=== PATIENT | male | born 1950 | race Caucasian/White ===

== ENCOUNTER → 2024-02-10 11:08 | Outpatient (REF) | payer OTHER, SELFPAY | LOC: RAD 11:08 | PROVIDERS: ATTENDING PHYSICIAN Nurse Practitioner; FAMILY PHYSICIAN Family Medicine | DX: J06.9 Acute upper respiratory infection, unspecified (principal) | CPT/HCPCS: 71046 ==

== ENCOUNTER → 2024-03-08 11:14 | Outpatient (REF) | payer OTHER, SELFPAY | LOC: RAD 11:14 | PROVIDERS: ATTENDING PHYSICIAN Student in an Organized Health Care Education/Training Program; OTHER PHYSICIAN Family Medicine | DX: R68.89 Other general symptoms and signs (principal) | CPT/HCPCS: 71046 ==

== ENCOUNTER → 2024-11-17 14:47 | Outpatient (REF) | payer OTHER, SELFPAY | LOC: RAD 14:47 | PROVIDERS: ATTENDING PHYSICIAN Family Medicine | DX: R93.89 Abnormal findings on diagnostic imaging of other specified body structures (principal) | CPT/HCPCS: 71046 ==